=== PATIENT | female | born 1940 | race Two or more races ===

== ENCOUNTER 2018-09-21 18:04 | Emergency (ER) | payer OTHER ==
[~2018-09-21] VITALS: Ht 170.2 cm; Wt 90.3 kg
[2018-09-21 19:58] LABS: Albumin 3.1 g/dL (3.4-5.0); Anion Gap 8 (5-15); Blood Urea Nitrogen 15 mg/dL (7-18); Calcium 7.7 mg/dL (8.5-10.1); Carbon Dioxide 24 mmol/L (21-32); Chloride 108 mmol/L (98-107); Glucose 100 mg/dL (74-106); Potassium 3.4 mmol/L (3.5-5.1); Sodium 140 mmol/L (136-145)
[2018-09-21 20:00] LABS: Alanine Aminotransferase 8 U/L (13-56); Aspartate Aminotransferase 4 U/L (15-37); BUN/Creatinine Ratio 16.5; GFR African American 77 mL/min; GFR Non-African American 63 mL/min
[2018-09-21 20:02] LABS: Alkaline Phosphatase 102 U/L (45-117); Bilirubin, Total 0.4 mg/dL (0.2-1.0); Total Protein 6.4 g/dL (6.4-8.2)
[2018-09-21 20:10] LABS: Basophils # (auto) 0 uL; Eosinophils # (auto) 0 uL; Mean Corpuscular Volume 79.8 fL (80.0-100.0)
[2018-09-21 20:12] LABS: Basophils % (auto) 0.5 % (0.0-2.0); Eosinophils % (auto) 0.2 % (0.0-7.0); Lymphocytes # (auto) 1.8 uL; Lymphocytes % (auto) 22.8 % (10.0-50.0); Mean Corpuscular Hemoglobin 26.7 pg (28.0-32.0); Mean Corpuscular Hgb Conc. 33.5 g/dL (32.0-36.0); Monocytes % (auto) 12.7 % (0.0-12.0); Neutrophils # (auto) 5.1 uL; Neutrophils % (auto) 63.8 % (37.0-80.0); Nucleated Red Blood Cells % 0.1 %; Platelet Count (auto) 128 10^3/uL (140-450); Red Blood Cells 4.88 10^6/uL (4.0-5.20); Red Cell Distribution Width 16.1 % (11.8-14.3)
[2018-09-21 20:48] LABS: INR 0.96 (0.9-1.15); Partial Thromboplastin Time 28.5 sec (23.78-33.04); Prothrombin Time 10.3 sec (9.27-12.13)
[2018-09-21] MEDS ORDERED: IOHEXOL 350 MG/ML 100ML IJ ONE (21:25)
[2018-09-22 01:17] VITALS: BP 160/72
[2018-09-22] MEDS ORDERED: CLOPIDOGREL BISULFATE 75 MG TAB PO ONE (01:30)
== END 2018-09-22 01:58 | disposition home or self-care (01) ==
LOC: ER 18:14
DX: I73.9 Peripheral vascular disease, unspecified (principal); R53.1 Weakness; R79.1 Abnormal coagulation profile; E11.9 Type 2 diabetes mellitus without complications; I10 Essential (primary) hypertension; J44.9 Chronic obstructive pulmonary disease, unspecified
CPT/HCPCS: 36415; 71046; 73706; 80053; 83880; 84443; 84484; 85025; 85379; 85610; 85730; 93005; 99284; Q9967